=== PATIENT | female | born 1940 | race Caucasian/White ===

== ENCOUNTER → 2023-12-01 11:00 | Outpatient (BNVA) | payer MEDICARE, SELFPAY | PROVIDERS: Family Provider Family Medicine; PCP Nurse Practitioner Family; Visit Provider Nurse Practitioner Family | DX: E03.9 Hypothyroidism, unspecified (principal); I10 Essential (primary) hypertension | CPT/HCPCS: 80053; 80061; 84443; 85025 ==

== ENCOUNTER 2024-08-30 09:59 | Outpatient (RCR) | payer MEDICARE, SELFPAY | END 2024-09-25 23:59 | disposition home or self-care (01) | LOC: GPT 09:59 | PROVIDERS: Family Provider Family Medicine; PCP Nurse Practitioner Family; Visit Provider Nurse Practitioner | DX: M54.50 Low back pain, unspecified (principal) | CPT/HCPCS: 97161 ==